=== PATIENT | female | born 1985 | race Caucasian/White ===

== ENCOUNTER 2019-04-26 09:38 | Emergency (ER) | payer OTHER ==
[~2019-04-26] VITALS: Ht 170.2 cm; Wt 74.1 kg
[2019-04-26 09:45] VITALS: BP 140/76; TEMP 98.7
[2019-04-26 10:58] VITALS: PULSE 63
== END 2019-04-26 10:58 | disposition home or self-care (01) ==
LOC: COL.ER 09:38
DX: M75.22 Bicipital tendinitis, left shoulder (principal)

== ENCOUNTER 2020-08-26 11:11 | Emergency (ER) | payer OTHER ==
[~2020-08-26] VITALS: Ht 170.2 cm; Wt 75.0 kg
[2020-08-26 11:18] VITALS: BP 144/50; TEMP 97.9
[2020-08-26 13:40] VITALS: PULSE 76
== END 2020-08-26 13:40 | disposition home or self-care (01) ==
LOC: COL.ER 11:11
DX: M75.22 Bicipital tendinitis, left shoulder (principal); R07.89 Other chest pain